=== PATIENT | male | born 1960 | race Caucasian/White ===

== ENCOUNTER → 2022-09-30 | Outpatient (CLI) | payer OTHER ==
[~2022-09-30] MED LIST: ASPI325 PO; HYDACE5 PO; LISI20 PO; SULTRIDS PO
[2022-10-02 10:26] LABS: C DIFFICILE DNA NEGATIVE (Negative)
== END | disposition home or self-care (01) ==
LOC: LAB 06:00 → LAB SHORT 06:00 → EDSTATUS 09-30 14:25 → LAB FUT 09-30 14:25
PROVIDERS: Legal Medicine
DX: K52.9 Noninfective gastroenteritis and colitis, unspecified (principal)
CPT/HCPCS: 87015; 87045; 87046; 87177; 87205; 87209; 87329; 87493; 87899

== ENCOUNTER 2023-06-12 05:50 | Day surgery (SDC) | payer OTHER ==
[~2023-06-12] VITALS: Ht 182.9 cm; Wt 135.0 kg
[2023-06-12] MEDS ORDERED: Lactated Ringer's 1,000 ML IV SCH (06:20)
[2023-06-12 06:44] VITALS: BP 127/76
[2023-06-12] MEDS ORDERED: propofoL 20 ML IV ONE ×3 (06:56→06:57)
[2023-06-12] MEDS ORDERED: Lidocaine HCl 2% 20 ML MDV ONE (06:58)
[2023-06-12] MEDS ORDERED: Ondansetron HCl 2 MG / ML 2ML Vial ONE (07:02)
--- NOTE | 2023-06-12 07:18 | NUR ---
06/12/23 0718 Coleen Carrillo History, Chart, Medications and Allergies reviewed before start of procedure. O2 VIA N/C INTACT THROUGHOUT SEDATION/PROCEDURE. Patient confirms NPO status and agrees with scheduled surgery. See Anesthesia record FROM DR. QUIGLEY.
[2023-06-12 07:54] VITALS: BP 118/73
[2023-06-12 07:56] VITALS: BP 124/79
--- NOTE | 2023-06-12 08:17 | NUR ---
PT REFUSED ANYTHING TO EAT OR DRINK. Discharge instructions reviewed with patient. Patient verbalizes understanding. Copy given to patient to take home. Discharged via wheelchair to private car for ride home. Patient up to Ambulate independently. Gait steady.
== END 2023-06-12 08:18 | disposition home or self-care (01) ==
LOC: ORSCMMR 05:50 → ORD 07:30 → ORSCMMR 08:18
PROVIDERS: Surgery
PROC: 0DBH8ZX Excision of Cecum, Via Natural or Artificial Opening Endoscopic, Diagnostic (ICD-10-PCS; principal; 2023-06-12 07:30)
DX: R19.4 Change in bowel habit (principal); Z86.010 Personal history of colon polyps; D12.0 Benign neoplasm of cecum; K21.9 Gastro-esophageal reflux disease without esophagitis; I10 Essential (primary) hypertension; G47.33 Obstructive sleep apnea (adult) (pediatric); E66.01 Morbid (severe) obesity due to excess calories; Z68.41 Body mass index [BMI] 40.0-44.9, adult; Z79.899 Other long term (current) drug therapy
CPT/HCPCS: J2405; J2704; J7120